=== PATIENT | male | born 2000 | race Hispanic/Latino ===

== ENCOUNTER 2023-03-07 00:02 | Emergency (ER) | payer SELFPAY ==
[2023-03-07] MEDS ORDERED: METOCLOPRAMIDE 10 MG/2mL INJ ONE (01:31)
[2023-03-07] MEDS ORDERED: CODEINE 30MG/APAP 300MG TAB ONE (01:31)
[2023-03-07] MEDS ORDERED: KETOROLAC 30 MG/ML INJ ONE (01:32)
[2023-03-07 01:38] LABS: Absolute Lymphocytes (CBC) 3.2 K/uL (0.7-4.9); Hematocrit 50.9 % (39.6-49.0); Lymphocytes % 34.9 % (15.3-44.8); MCV 85.2 fL (80-100); MPV 7.2 fL (7.6-11.3); Platelets 306 thou/uL (152-406); RBC Red Blood Cell Count 5.97 M/uL (4.33-5.43)
[2023-03-07 01:52] LABS: ALT/SGPT 40 U/L (16-61); Albumin 4.5 g/dL (3.4-5.0); Alkaline Phosphatase 99 U/L (45-117); BUN Blood Urea Nitrogen 11 mg/dL (7-18); Bicarbonate 28 mEq/L (21-32); Bilirubin Total 0.3 mg/dL (0.2-1.0); Glomerular Filtration Rate 111 ml/min (=/>90); Glucose Level 111 mg/dL (74-106); Protein, Total 8.8 g/dL (6.4-8.2); Sodium Level 138 mEq/L (136-145)
[2023-03-07 01:54] LABS: AST/SGOT 26 U/L (15-37); Bilirubin Direct < 0.1 mg/dL (0-0.2); Bilirubin Indirect, Calculated ND mg/dL (0.2-0.8); Potassium 3.5 mEq/L (3.5-5.1)
--- NOTE | 2023-03-07 02:33 | EDPHYS ---
Physician Documentation [facility] Name: Eduardo Jon Age: 22 yrs Sex: Male : 2000 Arrival Date: 03/07/2023 Time: 00:02 Bed 15 Private MD: ED Physician Wilfredo Keen HPI: 03/07 00:27 This 22 yrs old Black Male presents to ER via Unassigned with complaints of Cough, sp4 Congestion, Nose Bleed, Anxiety. 00:41 This is a very pleasant Cypriot-speaking male who presents with 7 days of chills, sp4 vomiting, nausea, feeling unwell overall, and some report of nosebleeds. Also there is associated cough . Historical: - Allergies: 00:48 No Known Allergies; bp - Home Meds: 00:48 None [Active]; bp - PMHx: 00:48 None; bp - Immunization history:: Adult Immunizations up to date. - Social history:: Smoking status: Patient denies any tobacco usage or history of. - Family history:: not pertinent. ROS: 00:41 Constitutional: Positive fever , positive chills , positive cough , positive body aches sp4 , positive nosebleed positive congestion, positive feeling unwell 00:41 All other systems are negative, Exam: 00:41 Constitutional: This is a well developed, well nourished patient who is awake, alert, sp4 and in no acute distress. Head/Face: Normocephalic, atraumatic. Eyes: Pupils equal round and reactive to light, extra-ocular motions intact. Lids and lashes normal. Conjunctiva and sclera are not injected. Cornea within normal limits. Periorbital areas with no swelling, redness, or edema. ENT: Nares patent. No nasal discharge, no septal abnormalities noted. Tympanic membranes are normal and external auditory canals are clear. Oropharynx with no redness, swelling, or masses, exudates, or evidence of obstruction, uvula midline. Mucous membranes moist. Neck: Trachea midline, no thyromegaly or masses palpated, and no cervical lymphadenopathy. Supple, full range of motion without nuchal rigidity, or vertebral point tenderness. Chest/axilla: Normal chest wall appearance and motion. Nontender with no deformity. No lesions are appreciated. Cardiovascular: Regular rate and rhythm with a normal S1 and S2. No gallops, murmurs, or rubs. Normal PMI, no JVD. No pulse deficits. Respiratory: Lungs have equal breath sounds bilaterally, clear to auscultation and percussion. No rales, rhonchi or wheezes noted. No increased work of breathing, no retractions or nasal flaring. Abdomen/GI: Soft, non-tender, with normal bowel sounds. No distension or tympany. No guarding or rebound. No evidence of tenderness throughout. Back: No spinal tenderness. No costovertebral tenderness. Skin: Warm, dry with normal turgor. Normal color with no rashes, no lesions, and no evidence of cellulitis. MS/ Extremity: Pulses equal, no cyanosis. Neurovascular intact. Full, normal range of motion. Neuro: Awake and alert, GCS 15, oriented to person, place, time, and situation. Cranial nerves II-XII grossly intact. Motor strength 5/5 in all extremities. Sensory grossly intact. Psych: Awake, alert, with orientation to person, place and time. Behavior, mood, and affect are within normal limits Vital Signs: 00:47 BP 154 / 104; Pulse 91; Resp 16; Temp 98; Pulse Ox 99% ; Weight 73.03 kg; bp 01:30 BP 120 / 83; Pulse 78; Resp 16 S; Pulse Ox 98% on R/A; jw7 02:40 BP 134 / 69; Pulse 79; Resp 16 S; Pulse Ox 96% on R/A; jw7 MDM: 01:26 Patient medically screened. sp4 02:30 Differential Diagnosis: Bronchitis Influenza Upper Respiratory Infection Sinusitis sp4 Pharyngitis Otitis Media Allergic Rhinitis. Data reviewed: vital signs, nurses notes, lab test result(s), CBC, electrolytes, Flu: negative hepatic panel. Consideration of Admission/Observation Escalation of care including admission/observation considered. 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 Patient states for 1 week he has been feeling unwell with headaches and chills. Today he checked his heart rate with his iPhone and the heart rate was high. Patient reported that he felt his heart rate was racing. Work-up today is basically unremarkable. Patient does have mild elevation of his blood pressure but no other emergent problem was discovered. Vital signs are stable patient is not tachycardic and not febrile. Will prescribe as needed ibuprofen, as needed Benadryl as well before bedtime. COVID-19 is negative influenza is negative. patient stable for discharge home. 03/07 00:40 Order name: Basic Metabolic Panel; Complete Time: 02:4 03/07 00:40 Order name: CBC with Diff; Complete Time: 02:03/07 00:40 Order name: LFT's; Complete Time: :03/07 00:40 Order name: COVID-19 SARS RT PCR; Complete Time: :03/07 00:40 Order name: Influenza Screen (a \\T\\ B); Complete Time: :03/07 00:40 Order name: IV Saline Lock; Complete Time: 03/07 00:40 Order name: Labs collected and sent; Complete Time: Administered Medications: 01:33 Drug: metoCLOPramide IVP 10 mg IVP once; over 1 to 2 minutes Route: IVP; Site: left bp antecubital; 02:44 Follow up: Response: No adverse reaction jw7 01:33 Drug: Ketorolac IVP 30 mg IVP once Route: IVP; Site: left antecubital; bp 02:44 Follow up: Response: No adverse reaction; Marked relief of symptoms jw7 :33 Drug: NS 0.9% IV 1000 ml IV at 1 bolus Per protocol; 1000 mL bolus Route: IV; Rate: 1 bp bolus; Site: left antecubital; 02:45 Follow up: Response: No adverse reaction; IV Status: Pt demanded removal of IV, stated jw7 "I'm going to rip it out if you don't remove the IV".; IV Intake: 200ml 01:33 Drug: Acetaminophen-Codeine PO (300 mg-30 mg) 2 tabs PO once; RASS on ADMIN: Combtv4, bp Very Agttd3, Agttd2, Rstlss1, AlertClm0, Drwsy-1, Lt Sdtn-2, Mod Sdtn-3, Dp Sdtn-4, UnArsble-5 Route: PO; 02:46 Follow up: Response: No adverse reaction jw7 02:28 Drug: Dextromethorphan-Guaifenesin PO Liquid 10 mg-100 mg/5 mL 10 ml PO once Route: PO; jw7 02:46 Follow up: Response: No adverse reaction jw7 Disposition Summary: 03/07/23 02:33 Discharge Ordered Problem: new sp4 Symptoms: have improved sp4 Condition: Stable sp4 Diagnosis - Chills (without fever) sp4 - Acute tachycardia, flulike symptoms, common cold sp4 Followup: sp4 - With: Nitesh Thayre DO - When: 7 - 10 days - Reason: Recheck today's complaints Discharge Instructions: - Discharge Summary Sheet sp4 - Viral Illness, Adult sp4 Forms: - Patient Portal Instructions sp4 Prescriptions: - Benadryl 25 mg Oral capsule - take 1 capsule ORAL route every 12 hours PRN congestion; 30 capsule; Refills: sp4 0, Product Selection Permitted - Ibuprofen 800 mg Oral Tablet - take 1 tablet ORAL route every 8 hours As needed take with food; 30 tablet; sp4 Refills: 0, Product Selection Permitted Signatures: Dispatcher [employer] Otoniel Brasher RN RN bp Waits, Jodi, RN RN jw7 Wilfredo Keen MD MD sp4
--- NOTE | 2023-03-07 02:33 | ER ---
Nurse's Notes [facility] Name: Eduardo Jon Age: 22 yrs Sex: Male : 2000 Arrival Date: 03/07/2023 Time: 00:02 Bed 15 Private MD: Diagnosis: Chills (without fever);Acute tachycardia, flulike symptoms, common cold Presentation: 03/07 00:47 Chief complaint: Patient states: SORE THROAT AND MALAISE SINCE SATURDAY. Coronavirus bp screen: At this time, the client does not indicate any symptoms associated with coronavirus-19. Ebola Screen: No symptoms or risks identified at this time. Initial Sepsis Screen: Does the patient meet any 2 criteria? No. Patient's initial sepsis screen is negative. Does the patient have a suspected source of infection? No. Patient's initial sepsis screen is negative. Risk Assessment: Do you want to hurt yourself or someone else? Patient reports no desire to harm self or others. Onset of symptoms is unknown. 00:47 Method Of Arrival: Ambulatory bp 00:47 Acuity: VINCENT 4 bp Triage Assessment: 00:48 General: Appears in no apparent distress. Behavior is calm, cooperative, appropriate bp for age. Pain: Complains of pain in neck. Respiratory: Breath sounds are clear bilaterally. Historical: - Allergies: 00:48 No Known Allergies; bp - Home Meds: 00:48 None [Active]; bp - PMHx: 00:48 None; bp - Immunization history:: Adult Immunizations up to date. - Social history:: Smoking status: Patient denies any tobacco usage or history of. - Family history:: not pertinent. Screenin:59 [facility] ED Fall Risk Assessment (Adult) History of falling in the last 3 months, jw7 including since admission No falls in past 3 months (0 pts) Score/Fall Risk Level 0 - 2 = Low Risk Oriented to surroundings, Maintained a safe environment. Abuse screen: Denies threats or abuse. Denies injuries from another. Nutritional screening: No deficits noted. Tuberculosis screening: No symptoms or risk factors identified. Assessment: 00:59 Cardiovascular: Capillary refill < 3 seconds Clubbing of nail beds is absent JVD is jw7 absent Patient's skin is warm and dry. Respiratory: Airway is patent Trachea midline Respiratory effort is even, unlabored, Respiratory pattern is regular, symmetrical. 01:45 Reassessment: Patient appears in no apparent distress at this time. No changes from jw7 previously documented assessment. Patient and/or family updated on plan of care and expected duration. Pain level reassessed. Patient is alert, oriented x 3, equal unlabored respirations, skin warm/dry/pink. 02:37 Reassessment: Patient appears in no apparent distress at this time. Patient and/or jw7 family updated on plan of care and expected duration. Pain level reassessed. Patient is alert, oriented x 3, equal unlabored respirations, skin warm/dry/pink. Respiratory: Airway is patent Trachea midline Respiratory effort is even, unlabored, Respiratory pattern is regular, symmetrical. Vital Signs: 00:47 BP 154 / 104; Pulse 91; Resp 16; Temp 98; Pulse Ox 99% ; Weight 73.03 kg; bp 01:30 BP 120 / 83; Pulse 78; Resp 16 S; Pulse Ox 98% on R/A; jw7 02:40 BP 134 / 69; Pulse 79; Resp 16 S; Pulse Ox 96% on R/A; jw7 ED Course: 00:21 Patient arrived in ED. gm2 00:26 Wilfredo Keen MD is Attending Physician. sp4 00:48 Lucero Kirkland RN is Primary Nurse. jw7 00:48 Triage completed. bp 00:48 Arm band placed on. bp 00:59 Patient has correct armband on for positive identification. Bed in low position. Call [facility] light in reach. 01:29 Influenza Screen (a \\T\\ B) Sent. jw7 01:29 COVID-19 SARS RT PCR Sent. jw7 01:29 Basic Metabolic Panel Sent. jw7 01:29 CBC with Diff Sent. jw7 01:29 LFT's Sent. jw7 01:33 Inserted saline lock: 22 gauge in left antecubital area, using aseptic technique. Blood bp collected. 02:00 IV discontinued, intact, bleeding controlled, No redness/swelling at site. Pressure jw7 dressing applied, pt requested removal of IV, stated "I'm going to rip it out if you don't remove it">. 02:32 Nitesh hTayer DO is Referral Physician. sp4 02:38 No provider procedures requiring assistance completed. jw7 02:57 Provided Education on: discharge instructions and medication usage. jw7 Administered Medications: 01:33 Drug: metoCLOPramide IVP 10 mg IVP once; over 1 to 2 minutes Route: IVP; Site: left bp antecubital; 02:44 Follow up: Response: No adverse reaction jw7 01:33 Drug: Ketorolac IVP 30 mg IVP once Route: IVP; Site: left antecubital; bp 02:44 Follow up: Response: No adverse reaction; Marked relief of symptoms jw7 01:33 Drug: NS 0.9% IV 1000 ml IV at 1 bolus Per protocol; 1000 mL bolus Route: IV; Rate: 1 bp bolus; Site: left antecubital; 02:45 Follow up: Response: No adverse reaction; IV Status: Pt demanded removal of IV, stated jw7 "I'm going to rip it out if you don't remove the IV".; IV Intake: 200ml 01:33 Drug: Acetaminophen-Codeine PO (300 mg-30 mg) 2 tabs PO once; RASS on ADMIN: Combtv4, bp Very Agttd3, Agttd2, Rstlss1, AlertClm0, Drwsy-1, Lt Sdtn-2, Mod Sdtn-3, Dp Sdtn-4, UnArsble-5 Route: PO; 02:46 Follow up: Response: No adverse reaction jw7 02:28 Drug: Dextromethorphan-Guaifenesin PO Liquid 10 mg-100 mg/5 mL 10 ml PO once Route: PO; jw7 02:46 Follow up: Response: No adverse reaction jw7 Medication: 02:38 VIS not applicable for this client. jw7 Intake: 02:45 IV: 200ml; Total: 200ml. jw7 Outcome: :33 Discharge ordered by . spJo 02:57 Discharged to home ambulatory, jw7 02:57 Condition: stable 02:57 Discharge instructions given to patient, Instructed on discharge instructions, follow up and referral plans. medication usage, Demonstrated understanding of instructions, follow-up care, medications, Prescriptions given X 2, 02:57 Patient left the ED. jw7 Signatures: Otoniel Burgos RN RN Lucero Kirby RN RN jwWilfredo Newman MD MD sp4 Madina Ayon 2 Corrections: (The following items were deleted from the chart) 01:01 00:47 BP 154 / 104; Pulse 91bpm; Resp 16bpm; Pulse Ox 99%; Temp 98F; bp bp
[2023-03-07] MEDS ORDERED: GUAIFENESIN/DM 5 ML UCUP ONE (02:39)
[2023-03-07 03:21] VITALS: TEMP 98
[2023-03-07 03:24] VITALS: BP 134/69; O2SAT 96
== END 2023-03-07 02:57 | disposition home or self-care (01) ==
LOC: ER 00:02
DX: J00 Acute nasopharyngitis [common cold] (principal); R00.0 Tachycardia, unspecified
CPT/HCPCS: 36415; 80048; 80076; 85025; 87635; 87804; 96361; 96374; 96375; 99284; J2765